=== PATIENT | female | born 2000 | race Two or more races ===

== ENCOUNTER 2025-06-19 12:26 | Outpatient (CLI) | payer OTHER ==
[~2025-06-19 12:26] MED LIST: INTEGRA PLUS C1 EACH PO; SYNTHROID200 MCG PO
== END 2025-06-19 12:30 | disposition home or self-care (01) ==
LOC: PRENATAL 12:26
PROVIDERS: ATTEND Obstetrics & Gynecology Maternal & Fetal Medicine
DX: O36.80X0 Pregnancy with inconclusive fetal viability, not applicable or unspecified (principal); Z36.82 Encounter for antenatal screening for nuchal translucency; O99.280 Endocrine, nutritional and metabolic diseases complicating pregnancy, unspecified trimester; O34.219 Maternal care for unspecified type scar from previous cesarean delivery; Z3A.13 13 weeks gestation of pregnancy

== ENCOUNTER 2025-08-12 07:55 | Outpatient (CLI) | payer OTHER | END 2025-08-12 07:58 | disposition home or self-care (01) | LOC: PRENATAL 07:55 | PROVIDERS: ATTEND Obstetrics & Gynecology Maternal & Fetal Medicine | DX: O44.02 Complete placenta previa NOS or without hemorrhage, second trimester (principal); O99.282 Endocrine, nutritional and metabolic diseases complicating pregnancy, second trimester; O34.219 Maternal care for unspecified type scar from previous cesarean delivery; Z3A.21 21 weeks gestation of pregnancy ==